=== PATIENT | male | born 1995 | race Caucasian/White ===

== ENCOUNTER 2022-04-18 02:53 | Emergency (ER) | payer MEDICAID, SELFPAY ==
[2022-04-18 03:09] VITALS: BP 139/76; PULSE 98; RESP 20; TEMP 37.1; O2SAT 96; BMI 29.8
[2022-04-18 03:27] VITALS: BP 129/77; PULSE 97; TEMP 36.6; O2SAT 96
--- NOTE | 2022-04-18 03:42 | ED.SKABFB ---
HPI - Skin/Abscess/Foreign Bdy General Chief complaint: Extremity Problem Stated complaint: cyst Time Seen by Provider: 04/18/22 03:41 Source: patient Mode of arrival: ambulatory Limitations: no limitations History of Present Illness HPI narrative: Patient With history of hydradenitis suppurative with recurrent abscesses this time patient noticed a small abscess right axillary area which is leaking now no fever no chills Related Data Previous Rx's Medication Instructions Recorded doxycycline hyclate 100 mg tablet 100 mg PO BID 60 days #120 tabs 04/18/22 Allergies Allergy/AdvReac Type Severity Reaction Status Date / Time No Known Allergies Allergy Unverified 03/16/20 16:33 Review of Systems Review of Systems: Yes all other systems are reviewed and are negative [facility] Social History Social History Advance Directives: No Physical Exam Vital Signs: Vital Signs: Last Vital Signs Temp 97.9 F 04/18/22 03:27 Pulse 97 04/18/22 03:27 Resp 20 04/18/22 03:09 BP 129/77 04/18/22 03:27 Pulse Ox 96 04/18/22 03:27 O2 Del Method 04/18/22 03:27 BMI result Body Mass Index 29.8 Appearance: Alert. Oriented X3. No acute distress. Neck: Normal inspection. Neck supple. CVS: Normal heart rate and rhythm. Pulses normal. Respiratory: No respiratory distress. Equal air entry bilateral, Abdomen: Soft and nontender. Bowel sounds are present, Skin: Skin warm and dry. Normal skin color. Normal skin turgor. Small 1 x 1 cm cyst in the right axillary area with discharging serosanguineous fluid multiple old aruptured cyst Extremities: No lower extremity edema. No calf tenderness Neuro: Oriented X 3. MDM - Skin/Abscess/Foreign Bdy MDM Narrative Medical decision making narrative: Patient with hydradenitis suppurative with small abscess which is already draining discharge patient home on doxycycline Differential Diagnosis Differential diagnosis: Likely abscess of skin or subcutaneous tissue Discharge Plan Discharge Clinical Impression: Suppurative hidradenitis Patient Disposition: Home, Self-Care Instructions: Hidradenitis Suppurativa (ED) Additional Instructions: Take antibiotic as advised Follow up with mental health assistant at [facility] Take doxycycline 1 capsule twice daily for 10 days after that take 1 capsule daily for 10 days after that take 1 capsule every other day for 2 weeks Prescriptions: New doxycycline hyclate 100 mg tablet 100 mg PO BID 60 Days Qty: 120 0RF Interventions: ED Discharge Assessment Last Done: 04/18/22 04:29 Discharge Date/Time: 04/18/22 04:30
== END 2022-04-18 04:30 | disposition home or self-care (01) ==
LOC: HO.ED 04:05
PROVIDERS: Emergency Provider Internal Medicine
DX: L73.2 Hidradenitis suppurativa (principal)
CPT/HCPCS: 99283

== ENCOUNTER 2022-10-29 07:28 | Emergency (ER) | payer MEDICAID, SELFPAY ==
[2022-10-29 07:32] VITALS: BP 154/85; PULSE 103; RESP 18; TEMP 36.8; O2SAT 97; BMI 42.9
[2022-10-29 08:39] LABS: Hematocrit 43.5 % (42.0-52.0); Hemoglobin 13.8 g/dl (14.0-18.0); Mean Corpuscular HGB Conc 31.7 g/dl (31.0-36.0); Mean Corpuscular Hemoglobin 26.8 pg (27.0-33.0); Mean Corpuscular Volume 84.5 fL (80.0-98.0); Mean Platelet Volume 11.6 fL (9.4-12.4); Platelet Count 254 X10*3/uL (160-400); Red Blood Count 5.15 X10*6/uL (4.60-5.80); Red Cell Distribution Width 13.6 % (11.0-16.0); White Blood Count 11.3 X10*3/uL (4.8-10.8)
[2022-10-29 08:52] LABS: Anion Gap 10 (12-20); Blood Urea Nitrogen 10 mg/dL (9-16); Calcium 9.4 mg/dL (8.4-10.2); Carbon Dioxide 30 mmol/L (22-29); Chloride 104 mmol/L (96-108); Creatinine Clr Calc Pharmacy 228.7; Estimated Glomerular Filt Rate > 60; Glucose Random 186 mg/dL (60-115); Potassium 4.1 mmol/L (3.3-5.1); Sodium 140 mmol/L (135-145)
--- NOTE | 2022-10-29 09:12 | ED.SKABFB ---
HPI - Skin/Abscess/Foreign Bdy General Chief complaint: Skin/Abscess/Foreign Body Stated complaint: Cyst? on back of neck Time Seen by Provider: 10/29/22 09:08 Source: patient and old records reviewed Mode of arrival: ambulatory History of Present Illness HPI narrative: 27-year-old male with no significant past medical history presenting to the ED complaining of painful lump to back of neck since last week. Reports folic area opened/was draining on Friday. Admits has been getting larger. Denies fever, chills, attempting drainage at home, ear pain, sore throat, difficulty swallowing MD complaint: abscess/boil Onset (ago): week(s) Related Data Previous Rx's Medication Instructions Recorded doxycycline hyclate 100 mg tablet 100 mg PO BID 60 days #120 tabs 04/18/22 cephalexin 500 mg capsule 500 mg PO QID 7 days #28 caps 10/29/22 doxycycline hyclate 100 mg tablet 100 mg PO BID 7 days #14 tabs 10/29/22 Allergies Allergy/AdvReac Type Severity Reaction Status Date / Time No Known Allergies Allergy Unverified 03/16/20 16:33 Review of Systems Review of Systems: Constitutional: No Fever, No Chills ENT/Mouth: No Ear Pain, No Nasal Congestion, No Sinus Pain, No Hoarseness, No sore throat, No Rhinorrhea, No Swallowing Difficulty Cardiovascular: No Chest Pain, No SOB Respiratory: No Cough, No Sputum, No Wheezing Gastrointestinal: No Nausea, No Vomiting, No Diarrhea, No Constipation, No Abdominal pain Genitourinary: No Dysuria, No Urinary Frequency, No Hematuria, No Flank Pain Musculoskeletal: No joint pain, No Myalgias, No Joint Swelling Skin: + Skin Lesions, No rash Neuro: No Weakness, No Numbness, No Paresthesias Yes all other systems are reviewed and are negative Constitutional: Constitutional: Reports as per HPI [facility] Past Medical History Attestation statement: The following information was validated with the patient. Social History Social History Advance Directives: No Advance Directives Information Provided: No Physical Exam Vital Signs: Vital Signs: Last Vital Signs Temp 98.3 F 10/29/22 07:32 Pulse 103 H 10/29/22 07:32 Resp 18 10/29/22 07:32 BP 154/85 H 10/29/22 07:32 Pulse Ox 97 10/29/22 07:32 O2 Del Method Room Air 10/29/22 07:32 BMI result Body Mass Index 42.9 Const: General: cooperative, healthy appearing, no acute distress, alert and awake Orientation/consciousness: patient oriented x3 Limitations: no limitations HEENT: Head: Yes normal to inspection and Yes atraumatic Ears: hearing grossly normal bilaterally, external ears normal, TM's normal bilaterally and mastoids normal General nose exam: Normal external nose present Face and sinus: Yes normal facial exam Mouth: Normal oral and palatal mucosa present Throat: Yes posterior oropharynx normal, Yes tonsils normal, Yes uvula midline, No uvula laterally displaced and No uvular edema Eyes: General: appearance normal, both eyes and all related structures EOM: EOMs intact bilaterally Neck: Other: + 5 cm indurated abscess noted to lower posterior neck. Minimal overlying erythema, no warmth, no fluctuance or crepitus. Neck: Yes no meningeal signs, Yes supple and No anterior neck swelling Resp: Effort & Inspection: normal respiratory effort, no respiratory distress and no stridor Auscultation: clear to auscultation bilaterally Cardio: Rate: regular rate Heart sounds: S1 normal heart sound present and S2 normal heart sound present Skin: Rashes: no rashes Neuro: General: patient oriented x3, tone normal and no meningeal signs Gait exam (Neuro): Normal gait present Extrem: General: Yes normal to inspection Medical Decision Making Medical Decision Making [facility] Narrative: 27-year-old male with no significant past medical history presenting to the ED complaining of painful lump to back of neck since last week. On exam initially mildly tachycardic likely from discomfort, NAD, nontoxic appearing, talking in complete sentences, no anterior neck swelling or or pharyngeal involvement. Indurated abscess noted to posterior neck without fluctuance. Low suspicion for deeper extending infection/edema No I & D needed at this time Plan: P.o. antibiotics, re-evaluation in 2 days Please refer to course for remaining clinical decision making, interpretation of labs/imaging results, and discussions with consultants and/or family members. Differential Diagnosis Differential Diagnoses: The differential diagnosis associated with the presentation includes As above Admission/Observation Consideration of admission/observation: Escalation of care including admission/observation considered Lab Data [facility] Lab Attestation statement: I reviewed the patient's lab results. 10/29/22 08:17 10/29/22 08:17 Labs: Lab Results 10/29/22 10/29/22 Range/Units 08:17 08:17 WBC 11.3 H (4.8-10.8) X10*3/uL RBC 5.15 (4.60-5.80) X10*6/uL Hgb 13.8 L (14.0-18.0) g/dl Hct 43.5 (42.0-52.0) % MCV 84.5 (80.0-98.0) fL MCH 26.8 L (27.0-33.0) pg MCHC 31.7 (31.0-36.0) g/dl RDW 13.6 (11.0-16.0) % Plt Count 254 (160-400) X10*3/uL MPV 11.6 (9.4-12.4) fL Absolute Nucleated RBC 0.000 (0.0-0.012) X10*3/uL Nucleated RBC % (auto) 0.0 (0.0-0.2) /100WBC Sodium 140 (135-145) mmol/L Potassium 4.1 (3.3-5.1) mmol/L Chloride 104 (96-108) mmol/L Carbon Dioxide 30 H (22-29) mmol/L Anion Gap 10 L (12-20) BUN 10 (9-16) mg/dL Creatinine 0.74 (0.5-1.4) mg/dL Estim Creat Clear Calc 228.7 Estimated GFR > 60 Random Glucose 186 H (60-115) mg/dL Calcium 9.4 (8.4-10.2) mg/dL Radiology Impression Discussion of test interpretation with radiology: I have reviewed the radiologist's reading. External Record Review External record reviewed: Inpatient record, Office record, Outpatient record, Prior outpatient labs, Prior outpatient radiology, Primary care record and Outside ED record Discharge Plan Discharge Clinical Impression: Abscess of skin or subcutaneous tissue Patient Disposition: Home, Self-Care Instructions: Abscess (ED), Abscess Follow-up (ED) Additional Instructions: You have an abscess to her neck. Doxycycline and Keflex are antibiotics please take as prescribed Apply warm compresses You should be re-evaluated in 2 days If area continues to grow, you develop any anterior neck swelling, difficulty breathing, shortness of breath, active drainage, or pointing/crouch return to the ED Prescriptions: New cephalexin 500 mg capsule 500 mg PO QID 7 Days Qty: 28 0RF doxycycline hyclate 100 mg tablet 100 mg PO BID 7 Days Qty: 14 0RF No Action doxycycline hyclate 100 mg tablet 100 mg PO BID 60 Days Qty: 120 0RF Referrals: [facility] [Primary Care Provider] - 2 days Stand Alone Forms: Work/School Release Interventions: ED Discharge Assessment Last Done: 10/29/22 09:38 Discharge Date/Time: 10/29/22 09:38
== END 2022-10-29 09:38 | disposition home or self-care (01) ==
PROVIDERS: Emergency Provider Emergency Medicine
DX: L02.11 Cutaneous abscess of neck (principal); Z79.899 Other long term (current) drug therapy
CPT/HCPCS: 36415; 80048; 85027; 99282; 99283

== ENCOUNTER 2023-07-09 01:11 | Emergency (ER) | payer MEDICAID, SELFPAY ==
--- NOTE | ~2023-07-09 | XR_ITS ---
EXAMINATION: XR CHEST CLINICAL INFORMATION: Cough, fevers COMPARISON: None available. TECHNIQUE: Frontal view of the chest was obtained. FINDINGS: No significant abnormality is noted involving the heart, lungs, mediastinum, bony thorax or soft tissues. XR/XR chest 1V IMPRESSION: No acute process.
[2023-07-09 01:16] VITALS: BP 153/78; PULSE 129; RESP 18; TEMP 38.8; O2SAT 93; BMI 42.6
[2023-07-09] MEDS: Acetaminophen 325 MG TABLET 975 MG PO (01:28)
[2023-07-09 01:57] LABS: MANUAL DIFF FLAG NO
[2023-07-09 01:58] LABS: Appearance Urine Clear; Basophils Percent Auto 0.4 % (0-2); Color Urine Yellow; Eosinophils Absolute Auto 0.1 X10*3/uL (0.0-0.4); Eosinophils Percent Auto 1.4 % (0-4); Glucose Urine UA Negative (Negative); Hematocrit 39.7 % (42.0-52.0); Imm Gran Pct Auto 1.4 % (0.0-0.4); Leukocyte Esterase Urine Negative (Negative); Lymphocytes Absolute Auto 0.9 X10*3/uL (1.2-4.9); Mean Corpuscular HGB Conc 32.7 g/dl (31.0-36.0); Mean Corpuscular Volume 82.5 fL (80.0-98.0); Mean Platelet Volume 11.4 fL (9.4-12.4); Monocytes Absolute Auto 0.7 X10*3/uL (0.1-1.2); Monocytes Percent Auto 10.5 % (2-11); Neutrophils Absolute Auto 5.2 x10*3/uL (2.0-8.3); Neutrophils Percent Auto 73.3 % (45-73); Nitrite Urine Negative (Negative); PH 6.5 (5.0-9.0); Platelet Count 202 X10*3/uL (160-400); Red Blood Count 4.81 X10*6/uL (4.60-5.80); Red Cell Distribution Width 13.4 % (11.0-16.0); Urine Blood Negative (Negative); Urine Ketones Negative (Negative); Urine Protein Trace mg/dL (Neg-Trace); White Blood Count 7.1 X10*3/uL (4.8-10.8)
[2023-07-09 02:00] LABS: Bacteria Urine None Seen (None Seen); Hyaline Casts Urine 0-2 /LPF (0-2); RBC Urine 0-2 /HPF (0-2); Squamous Epithelial Cell Urine 0-2 /HPF (0-2); WBC Urine 0-5 /HPF (0-5)
[2023-07-09 02:13] LABS: Alanine Aminotransferase 57 U/L (0-40); Alkaline Phosphatase 87 U/L (39-117); Anion Gap 13 (12-20); Aspartate Amino Transferase 38 U/L (5-37); Bilirubin Total 0.4 mg/dL (0.0-1.0); Blood Urea Nitrogen 7 mg/dL (9-16); Calcium 9.2 mg/dL (8.4-10.2); Carbon Dioxide 27 mmol/L (22-29); Chloride 103 mmol/L (96-108); Creatinine Clr Calc Pharmacy 195.7; Estimated Glomerular Filt Rate > 60; Glucose Random 138 mg/dL (60-115); Potassium 3.7 mmol/L (3.3-5.1); Sodium 139 mmol/L (135-145); Total Protein 7.2 g/dL (6.5-8.0)
[2023-07-09 02:24] LABS: IDNOW Serial# 08D9AD1C; Strep A Nucleic Acid Negative (Negative)
[2023-07-09 02:35] LABS: Influenza A PCR POSITIVE (Negative); Influenza B PCR NEGATIVE (Negative); Resp Syncy Virus RNA Qual PCR NEGATIVE (Negative); SARS COV2 PCR INHOUSE NEGATIVE (Negative)
--- NOTE | 2023-07-09 05:36 | PC.NURSE ---
pt walked out with a steady giat. no s/s of distress.
== END 2023-07-09 05:37 | disposition left against medical advice (07) ==
PROVIDERS: Emergency Provider Emergency Medicine
DX: J10.1 Influenza due to other identified influenza virus with other respiratory manifestations (principal); J06.9 Acute upper respiratory infection, unspecified; Z11.52 Encounter for screening for COVID-19; R05.9 Cough, unspecified; R50.9 Fever, unspecified
CPT/HCPCS: 0241U; 71045; 80053; 81001; 85025; 87651; 99283

== ENCOUNTER 2024-03-12 15:02 | Emergency (ER) | payer OTHER, SELFPAY ==
--- NOTE | ~2024-03-12 | XR_ITS ---
EXAMINATION: XR CHEST CLINICAL INFORMATION: Inhalation injury COMPARISON: 07/09/2023 TECHNIQUE: 2 views of the chest were obtained. FINDINGS: No focal consolidation, pulmonary edema, or pleural effusion. Stable cardiomediastinal silhouette. XR/XR chest 2V IMPRESSION: No acute cardiopulmonary findings. Electronically signed by: Hever Gardner MD 03/12/2024 04:58 PM EDT
[2024-03-12 15:30] VITALS: BP 109/82; PULSE 92; RESP 16; TEMP 37; O2SAT 97; BMI 43.3
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
--- NOTE | 2024-03-12 15:32 | ECG_ITS ---
Test Reason : inhalation of freion Blood Pressure : / mmHG Vent. Rate : 086 BPM Atrial Rate : 086 BPM P-R Int : 152 ms QRS Dur : 090 ms QT Int : 358 ms P-R-T Axes : 026 017 018 degrees QTc Int : 428 ms Normal sinus rhythm Normal ECG When compared with ECG of 04-NOV-2006 08:03, PREVIOUS ECG IS PRESENT No significant change was found Referred By: Vanessa Del Rio Electronically Signed By:MERCY LIMON
[2024-03-12 16:01] LABS: MANUAL DIFF FLAG NO
[2024-03-12 16:04] LABS: Basophils Absolute Auto 0.1 X10*3/uL (0.0-0.2); Basophils Percent Auto 0.5 % (0-2); Eosinophils Absolute Auto 0.2 X10*3/uL (0.0-0.4); Eosinophils Percent Auto 1.8 % (0-4); Hematocrit 40.8 % (42.0-52.0); Hemoglobin 13.7 g/dl (14.0-18.0); Imm Gran Abs Auto 0.05 X10*3/uL (0.00-0.03); Imm Gran Pct Auto 0.4 % (0.0-0.4); Lymphocytes Absolute Auto 2.8 X10*3/uL (1.2-4.9); Lymphocytes Percent Auto 24.8 % (20-40); Mean Corpuscular HGB Conc 33.6 g/dl (31.0-36.0); Mean Corpuscular Hemoglobin 28.2 pg (27.0-33.0); Monocytes Absolute Auto 0.6 X10*3/uL (0.1-1.2); Monocytes Percent Auto 5.4 % (2-11); Neutrophils Absolute Auto 7.7 x10*3/uL (2.0-8.3); Neutrophils Percent Auto 67.1 % (45-73); Platelet Count 214 X10*3/uL (160-400); Red Blood Count 4.86 X10*6/uL (4.60-5.80); Red Cell Distribution Width 13.5 % (11.0-16.0); White Blood Count 11.4 X10*3/uL (4.8-10.8)
[2024-03-12 16:19] LABS: Alanine Aminotransferase 46 U/L (0-40); Albumin Level 4.1 g/dL (3.5-5.0); Alkaline Phosphatase 91 U/L (39-117); Anion Gap 11 (12-20); Aspartate Amino Transferase 24 U/L (5-37); Bilirubin Total 0.4 mg/dL (0.0-1.0); Blood Urea Nitrogen 9 mg/dL (9-16); Calcium 9.4 mg/dL (8.4-10.2); Carbon Dioxide 26 mmol/L (22-29); Chloride 107 mmol/L (96-108); Creatinine Clr Calc Pharmacy 199.2; Estimated Glomerular Filt Rate > 60; Glucose Random 86 mg/dL (60-115); Magnesium 2.1 mg/dL (1.6-2.6); Sodium 140 mmol/L (135-145); Total Protein 7.4 g/dL (6.5-8.0)
[2024-03-12 18:19] VITALS: BP 125/77; PULSE 88; RESP 16; TEMP 36.6; O2SAT 97
[2024-03-12 20:40] VITALS: BP 136/81; PULSE 96; RESP 16; TEMP 36.8; O2SAT 97
[2024-03-12 21:26] VITALS: BP 136/81; PULSE 96; RESP 16; TEMP 36.8; O2SAT 97
== END 2024-03-12 21:27 | disposition home or self-care (01) ==
PROVIDERS: Physician Assistant Medical; Emergency Provider Emergency Medicine
DX: Z04.2 Encounter for examination and observation following work accident (principal); T53.5X1A Toxic effect of chlorofluorocarbons, accidental (unintentional), initial encounter; R51.9 Headache, unspecified; Y92.219 Unspecified school as the place of occurrence of the external cause
CPT/HCPCS: 36415; 71046; 80053; 83735; 85025; 93005; 99283; 99284